=== PATIENT | male | born 2000 | race Two or more races ===

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

== ENCOUNTER 2022-12-17 08:51 | Outpatient (CLI) | payer OTHER | END 2022-12-17 23:00 | disposition home or self-care (01) | LOC: LAB 08:51 | DX: M25.532 Pain in left wrist (principal) ==

== ENCOUNTER 2023-01-14 11:08 | Outpatient (CLI) | payer OTHER | END 2023-01-14 11:09 | disposition home or self-care (01) | LOC: LAB 11:08 | DX: M79.18 Myalgia, other site (principal) ==

== ENCOUNTER 2023-05-02 07:56 | Outpatient (CLI) | payer OTHER ==
[2023-05-02 11:36] LABS: HEMOGLOBIN 15.5 g/dL (13-16.00); MEAN CELL VOLUME 90.7 fL (80.0-100.00); MEAN CORPUSCULAR HGB CONC 35.3 g/dl (32.0-36.0); PLATELET COUNT 183 K/uL (150-450); RED BLOOD COUNT 4.85 M/uL (4.00-6.00); RED CELL DISTRIBUTION WIDTH 13.2 % (11.5-14.5)
[2023-05-02 12:04] LABS: PH,URINE 6.5 (5.0-8.0); URINE APPEARANCE Clear; URINE BILIRRUBIN Negative (NEGATIVE); URINE BLOOD Negative; URINE COLOR Yellow; URINE GLUCOSE Negative (NEGATIVE); URINE LEUKOCYTE Negative; URINE NITRATE Negative; URINE PROTEIN Negative (NEGATIVE); URINE UROBILINOGEN 0.2 E.U./dl
[2023-05-02 12:09] LABS: URINE RBC 5.6 uL (0.0-20.8); URINE WBC 1.9 uL (0.0-23.2)
[2023-05-02 12:30] LABS: URINE BACTERIA 3.7 uL (0.0-1933); URINE EPITHELIAL CELLS 1.2 uL (0.0-38.8)
[2023-05-02 12:50] LABS: ALBUMIN 4.6 gm/dL (3.4-5.0); BILIRUBIN TOTAL 0.67 mg/dL (0.3-1.2); CALCIUM 9.6 mg/dL (8.5-10.1); CHOL HDL RATIO 2.8 (0-5.0); CREATININE SERUM 0.98 mg/dL (0.70-1.30); GFR 97.51; GLOBULINA 3.3 G/DL (2.4-3.5); POTASSIUM 3.93 mEq/L (3.5-5.1); T4 FREE 1.07 NG/ML (0.76-1.46); TOTAL PROTEIN 7.9 gm/dL (6.4-8.2); TSH 0.517 uIU/mL (0.358-3.74)
== END 2023-05-02 23:00 | disposition home or self-care (01) ==
LOC: EDBD 07:56 → LAB 07:56
PROVIDERS: ATTEND Specialist
DX: R10.9 Unspecified abdominal pain (principal); E78.2 Mixed hyperlipidemia; E03.9 Hypothyroidism, unspecified; B96.81 Helicobacter pylori [H. pylori] as the cause of diseases classified elsewhere; E55.9 Vitamin D deficiency, unspecified

== ENCOUNTER 2023-05-06 12:13 | Outpatient (CLI) | payer OTHER | END 2023-05-06 12:14 | disposition home or self-care (01) | LOC: LAB 12:13 | PROVIDERS: ATTEND Specialist | DX: B96.81 Helicobacter pylori [H. pylori] as the cause of diseases classified elsewhere (principal) ==